=== PATIENT | male | born 1930 | race Caucasian/White ===

== ENCOUNTER 2016-12-31 15:30 | Emergency (ER) | payer MEDICARE, BC ==
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
[~2016-12-31 15:30] MED LIST: ACETAMINOPHEN325 MG PO; ALEVE220 M1 PO; APAP325 MG PO; CORGARD40 MG PO; COUMADIN PO; COZAAR PO; DOCUSATE SODIU100 MG PO; FERRO-TIME325 MG PO; FERROUS GLUCON324 MG PO; FUROSEMIDE40 MG PO; HYDROCODON-ACE1 EAC5 PO; HYDROCODONE-APA1 T56 PO; IBUPROFEN PO; IRON TABLETS1 TAB PO; LASIX20 MG PO; MELOXICAM15 MG PO; NADOLOL20 MG PO; PANTOPRAZOLE SO40 MG PO; PRILOSEC20 M1 PO; PROTONIX PO; SPIRONOLACTONE100 MG PO; SPIRONOLACTONE50 MG PO; TYLENOL500 MG PO; ZINC SULFATE PO
== END 2016-12-31 16:42 | disposition short-term general hospital (02) ==
LOC: CED 15:30
DX: S12.101A Unspecified nondisplaced fracture of second cervical vertebra, initial encounter for closed fracture (principal); S06.0X9A Concussion with loss of consciousness of unspecified duration, initial encounter; I10 Essential (primary) hypertension; V49.20XA Unspecified car occupant injured in collision with unspecified motor vehicles in nontraffic accident, initial encounter; Y92.410 Unspecified street and highway as the place of occurrence of the external cause
CPT/HCPCS: 70450; 72125; 99285